=== PATIENT | female | born 1980 | race Caucasian/White ===

== ENCOUNTER 2021-05-03 08:37 | Observation (INO) | payer SELFPAY ==
[2021-05-03] MEDS ORDERED: Morphine 4 MG/ML VIAL ONE ×4 (09:19→16:16)
[2021-05-03] MEDS ORDERED: Ondansetron PF 4 MG/2 ML Vial ONE (09:19)
[2021-05-03 09:23] LABS: Bilirubin Neg (Negative); Blood, Urine Negative (Negative); Clarity Clear (Clear); Glucose, Urine (Dipstick) Normal (Negative); Ketone, Urine Negative (Negative); Leukocyte Negative (Negative); Nitrite Negative (Negative); Protein, Urine (Dipstick) 30 mg/dl (Neg-Trace); Urobilinogen Normal mg/dL (Less than 2)
[2021-05-03 09:27] LABS: #Basophils 0.1 10x3/uL (0.0-0.2); #Eosinphils 0.1 10x3/uL (0.0-0.5); #Monocytes 0.9 10x3/uL (0.0-1.1); #Neutrophils 11.6 10x3/uL (1.5-8.4); %Basophils 0.4 % (0.0-2.0); %Lymphocytes 13.2 % (18.0-47.0); %Monocytes 5.8 % (0.0-10.0); %Neutrophils 78.9 % (40.0-75.0); Mean Corpuscular HGB CONC 28.4 g/dL (32.0-36.0); Mean Corpuscular Hemoglobin 18.5 pg (27.0-33.0); Mean Corpuscular Volume 65.1 fl (81.6-98.3); Mean Platelet Volume 9.6 fl (7.4-10.4); Platelet Count 453 10x3/uL (150-450); RBC Distribution Width 19.5 % (11.5-14.5); Red Blood Cell (RBC) Count 4.33 10x6/uL (3.90-5.03); White Blood Cell (WBC) Count 14.7 10x3/uL (3.5-10.5)
[2021-05-03 09:30] LABS: ALT (SGPT) 28 U/L (8-55); AST (SGOT) 23 U/L (5-34); Alkaline Phosphatase 97 U/L (40-110); Anion Gap 15 mmol/L (10-20); BUN (Urea Nitrogen) 19 mg/dL (7.0-18.7); Bilirubin, Total 0.2 mg/dL (0.2-1.2); Calc. Creatinine Clearance 0 mL/min (70-130); Calcium 8.8 mg/dL (7.8-10.44); Carbon Dioxide 19 mmol/L (22-29); Chloride 104 mmol/L (98-107); Globulin 2.8 g/dL (2.4-3.5); Glucose 152 mg/dL (70-105); Potassium 4.5 mmol/L (3.5-5.1); Protein, Total 6.8 g/dL (6.0-8.3); Sodium 133 mmol/L (136-145)
[2021-05-03 09:31] LABS: Pregnancy Test - Urine (BHCG) Negative (Negative); Pregu Control Background? CLEAR/WHITE (CLR/WHITE); Pregu Control Bar Appear? YES (CONTROL BAR)
[2021-05-03 09:42] LABS: RBC/HPF 0-3 HPF (0-3); WBC/HPF 0-3 HPF (0-3)
[2021-05-03 09:43] LABS: Bacteria/HPF 1+ HPF (None Seen)
[2021-05-03 10:11] LABS: Anisocytosis SLIGHT = 6-15 cells (100X) (0-5/hpf); Hypochromia SLIGHT = 6-15 cells (100X) (0-5/hpf); Microcytosis MODERATE=15-30 cells (100X) (0-5/hpf); Polychromasia SLIGHT = 2-3 cells (100X) (0-2/hpf)
[2021-05-03 10:12] LABS: Ovalocytes SLIGHT = 2-5 cells (100X) (0-1/hpf)
[2021-05-03 10:13] LABS: Platelet Morphology Comment Appears Adequate
[2021-05-03] MEDS ORDERED: Acetaminophen 325 MG TAB PO PRN (18:45)
[2021-05-03] MEDS ORDERED: Ondansetron ODT 4 MG TAB SL PRN (18:45)
[2021-05-03] MEDS ORDERED: Ondansetron PF 4 MG/2 ML Vial IVP PRN (18:45)
[2021-05-03 18:49] VITALS: BMI 45.7
[2021-05-03] MEDS ORDERED: Promethazine HCl 6.25 MG in Sodium Chloride 0.9% 50 ML IVPB PRN (19:15)
[2021-05-03] MEDS: Sodium Chloride 0.9% 1,000 ML IV SCH (19:53)
[2021-05-03] MEDS: Pantoprazole 40 MG VIAL IVP SCH (20:07)
[2021-05-03] MEDS: Ketorolac Tromethamine 30 MG/ML VIAL IVP SCH (23:42)
[2021-05-04 04:42] LABS: ALT (SGPT) 82 U/L (8-55); AST (SGOT) 65 U/L (5-34); Albumin 3.5 g/dL (3.5-5.0); Alkaline Phosphatase 86 U/L (40-110); Anion Gap 13 mmol/L (10-20); BUN (Urea Nitrogen) 13 mg/dL (7.0-18.7); Bilirubin, Total 0.3 mg/dL (0.2-1.2); Calc. Creatinine Clearance 131 mL/min (70-130); Calcium 8.3 mg/dL (7.8-10.44); Carbon Dioxide 18 mmol/L (22-29); Chloride 108 mmol/L (98-107); Globulin 2.5 g/dL (2.4-3.5); Glucose 146 mg/dL (70-105); Iron 14 ug/dL (50-170); Potassium 4.2 mmol/L (3.5-5.1); Sodium 135 mmol/L (136-145)
[2021-05-04 04:45] LABS: Iron 14 ug/dL (50-170); Iron Binding Capacity, Total 415 mcg/dL (265-497)
[2021-05-04] MEDS: Ketorolac Tromethamine 30 MG/ML VIAL IVP SCH ×4 (04:58→23:39)
[2021-05-04 06:44] LABS: #Basophils 0.1 10x3/uL (0.0-0.2); #Eosinphils 0.1 10x3/uL (0.0-0.5); #Monocytes 0.7 10x3/uL (0.0-1.1); #Neutrophils 9.2 10x3/uL (1.5-8.4); %Basophils 0.4 % (0.0-2.0); %Eosinophils 1.1 % (0.0-6.0); %Lymphocytes 14.1 % (18.0-47.0); %Monocytes 5.5 % (0.0-10.0); %Neutrophils 78.1 % (40.0-75.0); Mean Corpuscular HGB CONC 27.9 g/dL (32.0-36.0); Mean Corpuscular Hemoglobin 18.4 pg (27.0-33.0); Mean Corpuscular Volume 65.9 fl (81.6-98.3); Mean Platelet Volume 9.9 fl (7.4-10.4); Platelet Count 407 10x3/uL (150-450); Red Blood Cell (RBC) Count 3.81 10x6/uL (3.90-5.03); White Blood Cell (WBC) Count 11.8 10x3/uL (3.5-10.5)
[2021-05-04 06:51] LABS: Microcytosis MODERATE=15-30 cells (100X) (0-5/hpf)
[2021-05-04 06:52] LABS: Hypochromia MODERATE=16-30 cells (100X) (0-5/hpf); Ovalocytes SLIGHT = 2-5 cells (100X) (0-1/hpf); Polychromasia SLIGHT = 2-3 cells (100X) (0-2/hpf); Spherocytes SLIGHT = 1-5 cells (100X) (None Seen)
[2021-05-04] MEDS: Pantoprazole 40 MG VIAL IVP SCH (07:52)
[2021-05-04] MEDS: Sodium Chloride 0.9% 1,000 ML IV SCH ×2 (07:52→23:45)
[2021-05-04] MEDS ORDERED: Lorazepam 2 MG/ML VIAL SLOW IVP SCH (09:15)
[2021-05-04 11:20] LABS: SARS-CoV-2 NAA Rapid Test Not Detected (NotDetected)
[2021-05-04] MEDS ORDERED: PROPOFOL 20 ML ONE (12:31)
[2021-05-04] MEDS ORDERED: Fentanyl 100 MCG/2 ML VIAL ONE (12:31)
[2021-05-04] MEDS ORDERED: EPINEPHrine 1 MG/ML AMP ONE (12:34)
[2021-05-04] MEDS ORDERED: Ondansetron PF 4 MG/2 ML Vial ONE (12:34)
[2021-05-04] MEDS ORDERED: Lidocaine 2% PF 5 ML VIAL ONE ×2 (12:34→14:08)
[2021-05-04] MEDS ORDERED: Bupivacaine PF 0.5% 30 ML VIAL ONE (12:34)
[2021-05-04] MEDS ORDERED: Dexamethasone 20 MG/5 ML VIAL ONE (12:34)
[2021-05-04] MEDS ORDERED: Ketorolac Tromethamine 30 MG/ML VIAL ONE (12:34)
[2021-05-04] MEDS ORDERED: Rocuronium Bromide 10 MG/ML (10ML VIAL) ONE (12:35)
[2021-05-04] MEDS ORDERED: Albuterol Sulfate HFA (OR ONLY) ONE (13:22)
[2021-05-04] MEDS ORDERED: diphenhydrAMINE 50 MG/ML VIAL ONE (13:33)
[2021-05-04] MEDS ORDERED: Glycopyrrolate 0.2 MG/ML 5 ML SYRINGE ONE (14:00)
[2021-05-04] MEDS ORDERED: HYDROcodone/Acetaminophen 5/325 mg Tablet PO PRN ×2 (14:11)
[2021-05-04] MEDS ORDERED: Acetaminophen 325 MG TAB PO PRN (14:12)
[2021-05-04] MEDS ORDERED: SUGAMMADEX SODIUM 200 MG/2 ML VIAL ONE (14:16)
[2021-05-04] MEDS ORDERED: Morphine 4 MG/ML VIAL SLOW IVP PRN (14:23)
[2021-05-04] MEDS: Morphine 4 MG/ML VIAL SLOW IVP PRN ×2 (16:19→20:05)
[2021-05-04] MEDS ORDERED: FLU VACC QS2021-22(6MOS UP)/PF 60 MCG/0.5 ML SYRINGE IM ONE (19:15)
[2021-05-05 03:23] LABS: Chlamydia by PCR Not Detected (NotDetected); GC by PCR Not Detected (NotDetected)
[2021-05-05] MEDS: Ketorolac Tromethamine 30 MG/ML VIAL IVP SCH (06:03)
[2021-05-05 08:32] VITALS: BP 121/75; TEMP 98.1
== END 2021-05-05 10:58 | disposition home or self-care (01) ==
LOC: CSHERS 08:37 → CSHTELE 18:46
PROVIDERS: ADMIT Surgery; ATTEND Surgery
PROC: 0FT44ZZ Resection of Gallbladder, Percutaneous Endoscopic Approach (ICD-10-PCS; principal; 2021-05-03)
DX: K80.10 Calculus of gallbladder with chronic cholecystitis without obstruction (principal); E87.2 Acidosis; Z90.49 Acquired absence of other specified parts of digestive tract; Z20.822 Contact with and (suspected) exposure to COVID-19
CPT/HCPCS: 36415; 74176; 76705; 76856; 78227; 80053; 81003; 81015; 81025; 82728; 83540; 83550; 83690; 85025; 86850; 86900; 86901; 87480; 87491; 87510; 87591; 87660; 88304; 94640; 96374; 96375; 96376; C1776; C9113; G0378; J0171; J0690; J1100; J1200; J1885; J2001; J2060; J2270; J2405; J2550; J2704; J3010; J7050; J7620; S0020; U0002